=== PATIENT | female | born 1965 | race Caucasian/White ===

== ENCOUNTER 2024-03-17 18:40 | Emergency (ER) | payer MEDICAID ==
[~2024-03-17] VITALS: Ht 160 cm; Wt 86.6 kg
[2024-03-17] MEDS ORDERED: ZOLOFT25 MG PO (19:08)
[2024-03-17 19:50] VITALS: BP 147/97
== END 2024-03-17 19:50 | disposition home or self-care (01) ==
LOC: ED 18:40
DX: F10.129 Alcohol abuse with intoxication, unspecified (principal); Z88.5 Allergy status to narcotic agent; Z79.899 Other long term (current) drug therapy
CPT/HCPCS: 99284